=== PATIENT | male | born 1995 | race Caucasian/White ===

== ENCOUNTER 2017-12-15 21:20 | Emergency (ER) | payer BC ==
[~2017-12-15] VITALS: Ht 180.3 cm; Wt 77.2 kg
[2017-12-16 00:22] VITALS: BP 120/71
== END 2017-12-16 00:23 | disposition home or self-care (01) ==
LOC: EME 21:20
PROC: 0HQLXZZ Repair Left Lower Leg Skin, External Approach (ICD-10-PCS; principal; 2017-12-15)
PROC: 2W3DX1Z Immobilization of Left Lower Arm using Splint (ICD-10-PCS; principal; 2017-12-15)
DX: S81.012A Laceration without foreign body, left knee, initial encounter (principal); S80.01XA Contusion of right knee, initial encounter; S80.02XA Contusion of left knee, initial encounter; S63.502A Unspecified sprain of left wrist, initial encounter; V19.9XXA Pedal cyclist (driver) (passenger) injured in unspecified traffic accident, initial encounter; Y93.55 Activity, bike riding
CPT/HCPCS: 73110; 73564; 99281; 99284